=== PATIENT | male | born 1975 | race Caucasian/White ===

== ENCOUNTER 2021-12-21 11:24 | Outpatient (CLI) | payer BC, SELFPAY ==
[2021-12-21 19:34] LABS: Alanine Aminotransferase 41 U/L (6-50); Albumin Level 4.8 g/dL (3.5-5.1); Alkaline Phosphatase 51 U/L (38-126); Anion Gap 10 mmol/L (8-16); Aspartate Amino Transferase 40 U/L (17-59); Bilirubin,Total 0.5 mg/dL (0.2-1.3); Blood Urea Nitrogen 11 mg/dL (9-20); Calcium 9.5 mg/dL (8.4-10.2); Carbon Dioxide 25 mmol/L (22-30); Chloride 104 mmol/L (98-107); Estimated Glomerular Filt Rate > 60; Glucose 135 mg/dL (65-110); Potassium 4.7 mmol/L (3.4-5.0); Sodium 139 mmol/L (137-145)
[2021-12-21 20:20] LABS: Hemoglobin A1C 5.9 % (<5.7)
== END 2021-12-21 11:25 | disposition home or self-care (01) ==
LOC: ANHGOSHLAB 11:27
PROVIDERS: PCP Family Medicine; Visit Provider Family Medicine
DX: E11.9 Type 2 diabetes mellitus without complications (principal); I10 Essential (primary) hypertension
CPT/HCPCS: 36415; 80053; 83036

== ENCOUNTER 2022-12-20 10:28 | Outpatient (CLI) | payer BC, SELFPAY ==
[2022-12-20 13:33] LABS: Basophils Percent Auto 0.5 % (0.2-1.2); Eosinophils Absolute Auto 0.2 K/mm3 (0-0.3); Eosinophils Percent Auto 3.2 % (0-4.4); Hematocrit 42.2 % (42.0-52.0); Hemoglobin 14.3 g/dL (14.0-18.0); Immature Granulocyte Absolute 0.01 K/mm3 (0.00-0.031); Immature Granulocyte Percent A 0.2 % (0-0.5); Lymphocytes Absolute Auto 1.58 K/mm3 (0.9-3.2); Lymphocytes Percent Auto 28.1 % (18.3-44.2); Mean Corpuscular HGB Conc 33.9 g/dl (32-36); Mean Corpuscular Hemoglobin 30.6 pg (26-34); Mean Corpuscular Volume 90.2 fl (80-100); Monocytes Absolute Auto 0.5 K/mm3 (0.1-0.6); Monocytes Percent Auto 8.4 % (2.6-8.5); Neutrophils Absolute Auto 3.4 K/mm3 (1.3-6.7); Neutrophils Percent Auto 59.6 % (45.5-73.1); Platelet Count Result 264 k/mm3 (150-375); Red Blood Count 4.68 M/mm3 (4.6-6.20); Red Cell Distribution Width 12.4 % (11.5-14.5); White Blood Count 5.6 K/mm3 (4.5-10.0)
[2022-12-20 13:42] LABS: Alanine Aminotransferase 39 U/L (6-50); Albumin Level 4.1 g/dL (3.5-5.1); Alkaline Phosphatase 53 U/L (38-126); Anion Gap 7 mmol/L (8-16); Aspartate Amino Transferase 45 U/L (17-59); Bilirubin,Total 0.4 mg/dL (0.2-1.3); Blood Urea Nitrogen 12 mg/dL (9-20); Calcium 8.9 mg/dL (8.4-10.2); Carbon Dioxide 22 mmol/L (22-30); Chloride 109 mmol/L (98-107); Cholesterol 122 mg/dL (0-200); Estimated Glomerular Filt Rate > 60; Glucose 118 mg/dL (65-110); HDL Direct 25 mg/dL; Sodium 138 mmol/L (137-145); Triglycerides 297 mg/dL (<150)
[2022-12-20 13:52] LABS: LDL Cholesterol Direct 57 mg/dL
[2022-12-20 14:28] LABS: Potassium 4.1 mmol/L (3.4-5.0)
[2022-12-20 17:54] LABS: Hemoglobin A1C 6.3 % (<5.7)
[2022-12-22 21:06] LABS: PSA, Free 0.18 ng/mL; PSA, Total 0.8 ng/mL (<=4.0)
[2022-12-24 00:35] LABS: Vitamin D 1,25 (OH)2 Total 30 pg/mL (18-72); Vitamin D2 1,25 (OH)2 <8 pg/mL; Vitamin D3 1,25 (OH)2 30 pg/mL
== END 2022-12-20 10:29 | disposition home or self-care (01) ==
LOC: ANHGOSHLAB 10:29
PROVIDERS: PCP Family Medicine; Visit Provider Nurse Practitioner Family
DX: Z12.5 Encounter for screening for malignant neoplasm of prostate (principal); I10 Essential (primary) hypertension; E78.5 Hyperlipidemia, unspecified; E55.9 Vitamin D deficiency, unspecified; E11.9 Type 2 diabetes mellitus without complications
CPT/HCPCS: 36415; 80053; 80061; 82652; 83036; 84153; 84154; 84443; 85025

== ENCOUNTER 2024-07-18 16:17 | Outpatient (CLI) | payer BC, SELFPAY ==
--- OUTSIDE RECORDS SUMMARY | 2024-07-18 17:40 | XMS_ITS | Clinical Summary ---
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 Role Phone Unavailable Primary Care Provider Unavailabl e Social History Tobacco Use Types Packs/Day Years Used Date Smoking Tobacco: Never Assessed Sex and Gender Information Value Date Recorded Sex Assigned at Not on file Legal Sex Male 7:59 PM CDT Gender Identity Not on file Sexual Orientation Not on file Last Filed Vital Signs Vital Sign Reading Time Taken Comments Blood Pressure 140/88 04/03/2015 3:16 PM SUPERVISOR CHEMICAL Pulse - - Temperature - - Respiratory Rate - - Oxygen Saturation - - Inhaled Oxygen Concentration - - Weight 113.4 kg (250 lb) 04/03/2015 3:16 PM SUPERVISOR CHEMICAL Height 182.9 cm (6') 04/03/2015 3:16 PM SUPERVISOR CHEMICAL Body Mass Index 33.91 04/03/2015 3:16 PM SUPERVISOR CHEMICAL Plan of Treatment Health Maintenance Due Date Last Done Comments Colorectal Cancer Screening Colonoscopy (10 Years) 1975 Annual Physical 1978 Hepatitis C 1993 Hepatitis B Vaccines (1 of 3 - 19+ 3-dose series) 1994 COVID-19 Vaccine (2023-2 5 season) 2024 07/15/2020, 06/24/2020 Influenza Adult (#1) 2024 DTaP, Tdap and Td Vaccines ( 3 - Td or Tdap) 12/16/2026 12/16/2016, 04/03/2015, 05/16/2002 Meningococcal B Vaccine Aged Out No l onger eligible based on patient's age to complete this topic Meningococcal Vaccine Aged Out No myriam dinah eligible based on patient's age to complete this topic Pneumococcal Vaccine: Pediatrics (0 to 5 Years) and At-Risk Patients (6 to 64 Years) Aged Out No longer eligible b ased on patient's age to complete this topic RSV Immunizations Under 20 Months Aged Out No longer eligible b ased on patient's age to complete this topic
[2024-07-18 18:39] LABS: Alanine Aminotransferase 31 U/L (6-50); Albumin Level 4.6 g/dL (3.5-5.1); Alkaline Phosphatase 55 U/L (38-126); Anion Gap 8 mmol/L (4-12); Aspartate Amino Transferase 37 U/L (17-59); Bilirubin,Total 0.6 mg/dL (0.2-1.3); Blood Urea Nitrogen 18 mg/dL (9-20); Carbon Dioxide 30 mmol/L (22-30); Chloride 102 mmol/L (98-107); Estimated Glomerular Filt Rate > 60; Glucose 87 mg/dL (65-110); Potassium 4.1 mmol/L (3.4-5.0); Sodium 140 mmol/L (137-145)
[2024-07-18 18:54] LABS: Hemoglobin A1C 6.2 % (<5.7)
== END 2024-07-18 16:18 | disposition home or self-care (01) ==
LOC: ANHGOSHLAB 16:19
PROVIDERS: PCP Family Medicine; Visit Provider Family Medicine
DX: E78.5 Hyperlipidemia, unspecified (principal); E11.9 Type 2 diabetes mellitus without complications
CPT/HCPCS: 36415; 80053; 83036

== ENCOUNTER 2024-08-03 15:37 | Outpatient (CLI) | payer BC, SELFPAY ==
--- NOTE | ~2024-08-03 | US_ITS ---
EXAM: Focused ultrasound examination of the soft tissues of the left buttock HISTORY: R22.42 - Localized swelling, mass and lump, left lower limb TECHNIQUE: Sonographic evaluation of the soft tissues of the left buttock were performed assessing gr ayscale appearance and color Doppler flow. COMPARISON: None. FINDINGS: Within the area of palpable concern is an avascular, isoechoic focus with indistinct margin s measuring 17 x 8 x 16 mm. No posterior acoustic shadowing present. Sonographic evaluation of the remainder of the soft tissues of the left buttock demonstrate benign fi brofatty and fibromuscular elements without a cystic or solid lesion of concern. IMPRESSION: Findings within the area of palpable concern which may represent an atypical lipoma. Contrast-enhanced MRI is suggested for further evaluation. Reviewed, dictated and finalized at location A. IMPRESSION: Findings within the area of palpable concern which may represent an atypical li reta. Contrast-enhanced MRI is suggested for further evaluation.
== END 2024-08-03 15:38 | disposition home or self-care (01) ==
PROVIDERS: PCP Family Medicine; Visit Provider Family Medicine
DX: R22.42 Localized swelling, mass and lump, left lower limb (principal)
CPT/HCPCS: 76705

== ENCOUNTER 2024-08-28 08:39 | Outpatient (CLI) | payer BC, SELFPAY ==
--- NOTE | 2024-09-18 14:48 | WPDHOMESLEEP ---
Sleep Study - Home Unattended Date of Study: 08/28/24 Ordering Provider: Alec Wick MD Interpreting Provider: Lina Graham, DO Home Sleep Study Type: Watch PAT Height: 1.88 m Weight: 99.79 kg Body Mass Index: 28.2 Neck Circumference (inches): 17.25 [place]: 5 Reason for Sleep Study Snoring, witnessed apneas Sleep History The patient is a 49-year-old male that had a sleep study ordered by his primary care physician for evaluation of sleep apnea. The patient rarely awakens from sleep short of breath. He rarely awakens at night with heartburn, belching or cough. He constantly snores and is frequently loud enough that others complain. He denies having trouble sleeping when he has a cold. He occasionally wakes up gasping for air throughout the night. He occasionally has breathing problems at night observed by himself or others. He rarely sweats excessively at night. He rarely has heart palpitations or irregular heartbeats during the night. Rarely falls asleep during the day but never while driving. He denies sleep paralysis and cataplexy. He denies having trouble at school or work due to sleepiness. He rarely experiences vivid dreamlike scenes upon awakening or falling asleep. He denies feeling afraid of going to sleep. He rarely has nightmares. He rarely remembers his dreams. He rarely has thoughts racing through his mind. He denies feeling sad or depressed. He occasionally has anxiety. He occasionally has muscular tension. He occasionally notices parts of his body jerk. He rarely kicks during the night. He rarely has crawling and aching feelings in his legs and rarely has leg pain during the night. He occasionally grinds his teeth during sleep but never awakens with morning jaw pain. He is rarely bothered by pain during the day and rarely awakened by pain during the night. He occasionally wakes up feeling stiff in the morning. He rarely wakes up with sore or achy muscles. He rarely wakes up with pain in the neck, spine and other joints. He goes to bed at 10:30 p.m. on weekdays and at midnight the weekends. It can take him up to half an hour to fall asleep. He wakes up 3 times throughout the night to eat and is able to fall back asleep within 10 minutes. He wakes up at 5:30 a.m. on weekdays and at 9:30 a.m. on the weekends. He typically gets 6 hours of sleep per night. He will stay in bed for 10 minutes after waking up in the morning. He currently lives with his girlfriend and 2 children. He denies consuming any caffeinated beverages within 2 hours of bedtime. He will engage in physical exercise before bedtime. He denies reading before falling asleep. He will watch television before falling asleep. He denies taking naps in afternoon the evening. He consumes 4-6 cups of caffeinated beverage per day. He is a former smoker. He denies alcohol use. He will use an unspecified recreational drugs. [facility] Past Medical History Medical History Vitamin D deficiency Type 2 diabetes mellitus without complication, without long-term current use of insulin Environmental allergies Dyslipidemia Surgical History Surgical History History of vasectomy (~04/2022) Bent teeth extracted 1994 Family History Family History Other Diabetes mellitus Hypertension Social History Social History Social History: Caffeine-daily Smoking status: Former smoker (< 10 pack years) Tobacco type: cigarettes Second hand tobacco smoke exposure: Yes Smoking end date: 05/16/17 Alcohol intake: current Alcohol use details: consumes a couple drinks a month, rarely Substance use: current Substance use type: marijuana Do You Feel Safe in your Home?: Yes Lack of Transportation: No Lack of Food: Never True Current Housing: I Have Housing Concerned About Future Housing: No Difficulty Paying Gas/Electric Bills: No Difficulty Paying for Meds: No Currently Unemployed: No Education: Master's Degree or Higher Difficulty w/ Childcare or Family Care: No Occupation/Education: occupation 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 Medications Home Medications ?Medication ?Instructions ?Recorded ?Confirmed ?Type aspirin 81 mg tablet,delayed 81 mg PO DAILY 05/23/19 07/18/24 History release (Aspir-) cetirizine 10 mg tablet (Zyrtec) 10 mg PO DAILY 05/23/19 07/18/24 History multivitamin 1 tablet PO DAILY 05/23/19 07/18/24 History niacin 500 mg tablet 500 mg PO QID 05/23/19 07/18/24 History blood-glucose meter (Contour Meter) #1 ea 05/25/19 07/18/24 Rx lancing device (lancing device #100 ea 05/25/19 07/18/24 Rx with lancets) cholecalciferol (vitamin D3) 50 50 mcg PO DAILY 12/21/21 07/18/24 History mcg (2,000 unit) tablet blood sugar diagnostic (Contour See Rx Instructions .Route 06/17/23 07/18/24 Rx Next Test Strips) .COMPLEX #100 strips sitagliptin phos 50 mg-metformin 2 tablet PO DAILY #180 tabs 01/02/24 07/18/24 Rx ER 1,000 mg tablet,extend rel 24h mp (Janumet XR) dapagliflozin propanediol 10 mg 10 mg PO DAILY #90 tabs 02/16/24 07/18/24 Rx tablet (Farxiga) glipizide 10 mg tablet, extended 10 mg PO BID #180 tabs 02/16/24 07/18/24 Rx release 24 hr fenofibrate nanocrystallized 145 145 mg PO DAILY #90 tabs 05/18/24 07/18/24 Rx mg tablet tadalafil 10 mg tablet (Cialis) 10 mg PO DAILY PRN sexual activity 07/18/24 07/18/24 Rx #30 tabs simvastatin 10 mg tablet See Rx Instructions .Route 08/29/24 Rx .COMPLEX #90 tabs Sleep Procedure The sleep study was completed using [employer]ifts[employer] a technically adequate device with seven channels: peripheral arterial tone, actigraphy, body position, snore, respiratory movement, pulse oximetry, sleep staging, and heart rate. Prior to using the device, the patient received verbal and written instructions for its application and was provided with the help desk phone number for additional telephonic instruction with 24-hour availability of qualified personnel to answer questions. The study was scored using AASM and CMS guidelines. Sleep Architecture The total recording time is 6 hrs, 43 min. The total sleep time is 4 hrs, 57 min. Sleep latency is 17 minutes. REM latency is 107 minutes. The patient had 18 episodes of waking. Sleep architecture shows 21.2% deep sleep, 63.0% light sleep, and (as % Total Sleep Time) showed NREM (Light 63.0%; Deep 21.2%), and a 15.8% stage REM. The patient spent 4.2% of total sleep time in the supine position. Sleep efficiency was 73.70. Respiratory Analysis The overall AHI (pAHI 4%:) is 3.8. The overall AHI (pAHI 3%:) is 6.1. The central AHI is 0.6. The AHI was 6.5 in NREM and 3.8 in REM sleep. The AHI was 83.0 in Supine and 2.6 in Non-supine sleep. Percent of Micah Mccain respirations is 0.0. Oximetry Data The oxygen desaturation index (ORLY 4%:) is 4.2. The mean saturation is 95%, and the lowest saturation is 82%. Time spent with saturation < 88% is 2.5 minutes. Snoring Profile Snoring average intensity is 40 dB. The patient snored above 45 decibels for 8.4 minutes, 2.8% of sleep time. Cardiac Profile The average pulse rate is 78 beats per minutes. The lowest pulse rate is 63 bpm. The highest pulse rate reported is 99 bpm. Atrial fibrillation was not detected. Premature beats occur <0.1 per minute. Assessment and Plan Assessment and Plan (1) EMILIANO (obstructive sleep apnea): Code(s): G47.33 - Obstructive sleep apnea (adult) (pediatric) Status: Acute Assessment and Plan: Per AASM guidelines, the patient had an overall AHI of 6.1 with desaturation down to 82% which is consistent with mild sleep apnea. If the patient's insurance recognizes AASM guidelines, I recommend that he be treated due his co-morbidity of diabetes. I recommend that the patient be prescribed AutoPAP 5-15 cm H2O, CPAP mask/filters/tubing and heated humidity. If the patient's insurance only recognizes CMS guidelines, he would not qualify for treatment based on the results of this study and I would recommend having the patient do a split study. This should be used with all episodes of sleep.? Compliance should be reviewed within 31-90 days of starting therapy for usage greater than 4 hours per night greater than 70% of the nights. The patient should be asked about symptoms such as?excessive daytime sleepiness, quality of sleep, decreased nocturia, increased?mental functioning such as memory, mood, and concentration. Data The data obtained during this sleep study is adequate for interpretation. Certification This sleep study has been reviewed by a board certified sleep medicine physician.
[2024-09-18 14:50] VITALS: BMI 28.2
== END 2024-08-29 14:39 | disposition home or self-care (01) ==
LOC: ANHCSM 08:40
PROVIDERS: PCP Family Medicine; Visit Provider Family Medicine
DX: G47.33 Obstructive sleep apnea (adult) (pediatric) (principal); G47.10 Hypersomnia, unspecified; R29.818 Other symptoms and signs involving the nervous system
CPT/HCPCS: 95800

== ENCOUNTER 2025-05-15 11:12 | Emergency (ER) | payer BC, SELFPAY ==
--- NOTE | 2025-05-15 11:15 | ED.URI ---
HPI - URI/Sore Throat General Chief Complaint: Upper Respiratory Infection Stated Complaint: Sore Throat Time Seen by Provider: 05/15/25 11:12 Source: patient Mode of arrival: ambulatory Limitations: no limitations History of Present Illness HPI Narrative: patient is a 49-year-old male who presents with sore throat and cough that started yesterday. Denies any congestion, fever, chills, nausea, vomiting, diarrhea. Has taken cough drops but no other treatment. Related Data Home Medications ?Medication ?Instructions ?Recorded ?Confirmed ?Last Taken ?Type aspirin 81 mg tablet,delayed 81 mg PO DAILY 05/23/19 01/30/25 Unknown History release (Aspir-) cetirizine 10 mg tablet (Zyrtec) 10 mg PO DAILY 05/23/19 01/30/25 Unknown History multivitamin 1 tablet PO DAILY 05/23/19 01/30/25 Unknown History niacin 500 mg tablet 500 mg PO QID 05/23/19 01/30/25 Unknown History cholecalciferol (vitamin D3) 50 50 mcg PO DAILY 12/21/21 01/30/25 Unknown History mcg (2,000 unit) tablet simvastatin 10 mg tablet 10 mg PO QHS 01/30/25 01/30/25 Unknown History Allergies Allergy/AdvReac Type Severity Reaction Status Date / Time rosuvastatin AdvReac Unknown Other Verified 05/15/25 11:20 Review of Systems Review of Systems: All systems reviewed & are unremarkable except as noted in HPI and below Constitutional: Constitutional: Denies chills, Denies fatigue, Denies fever(s), Denies headache(s), Denies malaise and Denies weakness Eyes: Eyes: Denies blurry vision, Denies itchy eyes and Denies loss of vision ENT: Denies otalgia, Denies headache(s), Reports nasal congestion, Denies sinus pain and Denies sore throat Cardiovascular: Cardiovascular: Denies chest pain, Denies irregular heart rhythm and Denies dyspnea Respiratory: Respiratory: Reports cough and Denies dyspnea Gastrointestinal: Gastrointestinal: Denies abdominal pain, Denies diarrhea, Denies nausea and Denies vomiting Musculoskeletal: Musculoskeletal: Denies back pain, Denies myalgias and Denies arthralgias Integumentary/Breasts: Skin/Breast: Denies pruritus and Denies rash Neurologic: Denies headache(s), Denies loss of vision and Denies weakness Psychiatric: Psychiatric: Reports no additional psychiatric complaints Endocrine: Endocrine: Denies fatigue Allergic/Immunologic: Allergic/Immunologic: Denies itchy eyes PMFSH Past Medical History Medical History EMILIANO (obstructive sleep apnea) Vitamin D deficiency Type 2 diabetes mellitus without complication, without long-term current use of insulin Environmental allergies Dyslipidemia Surgical History Surgical History History of vasectomy (~04/2022) [place] teeth extracted 1993 Family History Family History Other Diabetes mellitus Hypertension Social History Social History Social History: Caffeine-daily Smoking status: Former smoker (< 10 pack years) Tobacco type: cigarettes Second hand tobacco smoke exposure: Yes Smoking end date: 05/16/17 Alcohol intake: current Alcohol use details: consumes a couple drinks a month, rarely Substance use: current Substance use type: marijuana Lack of Transportation: No Lack of Food: Never True Current Housing: I Have Housing Concerned About Future Housing: No Difficulty Paying Gas/Electric Bills: No Difficulty Paying for Meds: No Currently Unemployed: No Education: Master's Degree or Higher Difficulty w/ Childcare or Family Care: No Occupation/Education: occupation 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 There is no relevant family history pertinent to the presenting complaint. Exam Const: General: cooperative, healthy appearing, comfortable, no acute distress and well nourished Nutritional Appearance: well nourished Orientation/consciousness: patient oriented x3 Limitations: no limitations HENMT: Head: normal to inspection, normocephalic and atraumatic Ears: hearing grossly normal bilaterally, external ears normal, TM's normal bilaterally, EAC's normal and no periauricular adenopathy Face/Nose/Sinus: Normal external nose present, Abnormal mucous membranes and turbinates present erythematous bilateral and diffuse, normal facial exam, sinuses nontender and face symmetric Face and sinus: normal facial exam, sinuses nontender and face symmetric Mouth: Yes Normal oral and palatal mucosa present, Yes lip normal, Yes tongue normal, Yes Normal salivary glands and ducts present, Yes oropharynx normal and Yes moist mucous membranes Teeth and gingiva: dentition normal Throat: posterior oropharynx normal, tonsils normal and uvula midline Eyes: General: appearance normal, both eyes and all related structures Alignment and Position: alignment normal and position normal Periorbital: periorbital findings normal Eyelids: eyelids normal Pupils: Equal, round and reactive pupils present Neck: Neck: normal visual inspection, full ROM, no lymphadenopathy and supple Chest: Chest palpation & inspection: normal inspection of the chest and normal palpation of entire chest wall Resp: Effort & Inspection: normal respiratory effort and able to speak in complete sentences Auscultation: clear to auscultation bilaterally, no crackles, no rales, no rhonchi and no wheezes Cardio: Rate: regular rate Rhythm: regular rhythm Heart sounds: S1 normal heart sound present and S2 normal heart sound present GI: Inspection: normal to inspection Skin: General skin exam: normal color and no rashes or lesions noted Neuro: General: patient oriented x3 and moves all extremities Cranial nerves: Yes Equal, round and reactive pupils present Speech: normal speech Gait exam (Neuro): Normal gait present Extrem: General: normal to inspection, full ROM and no edema Psych: Appearance: grossly normal and well kempt Mental Status: mental status grossly normal Speech and movement: Normal speech and movement present Affect: normal affect Attitude: cooperative Thought process: Normal thought process present Course Course Emergency Course: Patient is aware of diagnosis, understands and agrees to treatment plan. Anticipatory guidance given. Patient agrees to follow-up as directed and is aware of reasons to seek care at the emergency department. Portions of this record may have been created with voice recognition software Level of Care: Express Care Visit Vital Signs Vital signs: Vital Signs Temperature 36.4 C 05/15/25 11:21 Pulse Rate 87 05/15/25 11:21 Respiratory Rate 16 05/15/25 11:21 Blood Pressure 134/92 H 05/15/25 11:21 Pulse Oximetry 98 05/15/25 11:21 Oxygen Delivery Room Air 05/15/25 11:21 Temperature 36.4 C 05/15/25 11:21 Pulse Rate 87 05/15/25 11:21 Respiratory Rate 16 05/15/25 11:21 Blood Pressure 134/92 H 05/15/25 11:21 Pulse Oximetry 98 05/15/25 11:21 Oxygen Delivery Room Air 05/15/25 11:21 [facility] Narrative Medical decision making narrative: Rapid strep was negative. A throat culture is pending. Symptoms likely viral in etiology.Offer COVID flu testing. Patient declined. Patient states he a COVID 3 weeks ago. Pt well hydrated appearing, in no respiratory distress, hemodynamically stable. Recommend supportive care. The patient is stable at time of discharge the clinical impression was discussed and the patient was given the opportunity to ask questions, which were addressed as completely as possible given the information available at present. Anticipatory guidance and return to care precautions were discussed and the importance of primary care follow-up was stressed and encouraged. The patient voiced understanding of the plan, indications to return, and the need for follow-up. Exam findings show no acute concerns or changes Patient is appropriate for outpatient treatment and follow-up. Differential Diagnosis Differential Diagnosis: Differential diagnosis considered: [place] virus, strep pharyngitis, allergic rhinitis, upper respiratory tract infection, sinusitis, rhinosinusitis, nasopharyngitis. viral pharyngitis, otitis media, otitis externa, otitis effusion, foreign body, cerumen impaction, viral syndrome, and influenza. Medical Records I have reviewed the following patient records and this information was taken into consideration when formulating the assessment and plan.: previous clinic visits Lab Data [facility] Lab Attestation statement: I personally reviewed the patient's lab results. Labs: Lab Results 05/15/25 Range/Units 11:51 POC Grp A Strep Screen Negative (Negative) Discharge Plan Discharge Clinical Impression: Upper respiratory infection Qualifiers: URI type: acute nasopharyngitis (common cold) Qualified Code(s): J00 - Acute nasopharyngitis [common cold] Patient Disposition: Home Condition: Stable Instructions: Upper Respiratory Infection (ED) Additional Instructions: Your rapid strep swab was negative today at [facility]. A throat culture will be sent to the laboratory for further testing. If the test is positive, you will receive a phone call within 48 hours and an appropriate antibiotic will be initiated at that time. Your symptoms are likely due to a viral illness, which is not treated with antibiotics. Viral symptoms can be present for up to a few weeks. -For pain/fever, you may take: Tylenol 650-1000mg by mouth every 4-6 hours. Do not exceed 4000mg in 24 hours. Advil (Ibuprofen) 600 mg by mouth every 6 hours. Do not exceed 2400mg in 24 hours. 8 AM: Tylenol 11 AM: Ibuprofen 2 PM: Tylenol 5 PM: Ibuprofen 8 PM: Tylenol 11 PM: Ibuprofen 2 AM: Tylenol 5 AM: Ibuprofen -Antihistamine medication such as Benadryl/Zyrtec at night and Claritin/Penny during the day can help improve symptoms. -Use Flonase twice a day for 5 days then daily to help reduce the inflammation and dry up your sinuses. -You can also use Sudafed behind the pharmacy counter(12 or 24 hour). Be sure to drink plenty of water with these medications at least 8 ounces with every dose and it is important to drink 8 to 10 glasses of water per day. Water is a natural decongestant -Eat and drink things that are easy to swallow, like tea or soup, or popsicles. -Oral rinses such as: Salt water gargles and/or may use topical anesthetic (eg. Chloraseptic spray) or lozenges to relieve dryness or throat pain). -Frequent hand washing or hand grout machine tender is one of the best ways to prevent spread of infection. -Using a vaporizer or humidifier at night will also help thin secretions and help with coughing up phlegm. Call your Primary Care Doctor and make a follow-up appointment in 3 days. If your cough worsens, you develop a fever greater than 103, you develop shaking chills, a fast heartbeat, trouble breathing and/or feel you are are breathing much faster than usual, call your Primary Care Doctor or go to the ER. Patient Language: Moroccan Prescriptions: New benzonatate 100 mg capsule 100 mg PO BID PRN (Reason: cough) Qty: 14 0RF fluticasone propionate [Flonase Allergy Relief] 50 mcg/actuation spray,suspension 1 spray intranasal DAILY Qty: 16 0RF Rx Instructions: administer into each nostril No Action cholecalciferol (vitamin D3) 50 mcg (2,000 unit) tablet 50 mcg PO DAILY niacin 500 mg tablet 500 mg PO QID aspirin [Aspir-81] 81 mg tablet,delayed release (DR/EC) 81 mg PO DAILY cetirizine [Zyrtec] 10 mg tablet 10 mg PO DAILY multivitamin Tablet 1 tablet PO DAILY Contour Next Test Strips Strip See Rx Instructions .ROUTE .COMPLEX Qty: 100 3RF Dose Instruction: TEST EVERY MORNING AND NEEDED -- MAXIMUM OF 3 TIMES DAILY Rx Instructions: TEST EVERY MORNING AND NEEDED -- MAXIMUM OF 3 TIMES DAILY tadalafil [Cialis] 10 mg tablet 10 mg PO DAILY PRN (Reason: sexual activity) Qty: 30 0RF Rx Instructions: administer approximately 30min before sexual activity; do not use more than 1 dose per 24hrs simvastatin 10 mg tablet 10 mg PO QHS (DME) blood-glucose meter [Contour Meter] [facility] See Rx Instructions .ROUTE .MEDSUPPLY Qty: 1 0RF Rx Instructions: As directed [place] [place] lancing device [lancing device with lancets] [facility] See Rx Instructions .ROUTE .MEDSUPPLY Qty: 100 3RF Rx Instructions: to test blood sugar QAM and PRN max TID (DME) auto Pap See Rx Instructions .Route .MEDSUPPLY Qty: 1 0RF Rx Instructions: auto PAP and supplies AutoPAP 5-15 cm H2O Janumet XR 50-1,000 mg tablet, ER multiphase 24 hr 2 tablet PO DAILY Qty: 180 1RF Farxiga 10 mg tablet 10 mg PO DAILY Qty: 90 1RF glipizide 10 mg tablet extended release 24hr 10 mg PO BID Qty: 180 1RF fenofibrate nanocrystallized 145 mg tablet 145 mg PO DAILY Qty: 90 1RF ondansetron 4 mg tablet,disintegrating 4 mg PO Q8H PRN (Reason: nausea and vomiting) Qty: 30 0RF Follow-up/Referrals: Valorie Wick MD [Primary Care Provider, Family Practice] - 3 Days Time of Disposition: 11:42
[2025-05-15 11:21] VITALS: BP 134/92; PULSE 87; RESP 16; TEMP 36.4; O2SAT 98
--- OUTSIDE RECORDS SUMMARY | 2025-05-15 11:33 | XMS_ITS | Clinical Summary ---
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 Pulse - - Temperature - - Respiratory Rate - - Oxygen Saturation - - Inhaled Oxygen Concentration - - Weight 113.4 kg (250 lb) 04/03/2015 3:16 PM RETAIL MANAGEMENT KEYHOLDER Height 182.9 cm (6') 04/03/2015 3:16 PM RETAIL MANAGEMENT KEYHOLDER Body Mass Index 33.91 04/03/2015 3:16 PM RETAIL MANAGEMENT KEYHOLDER Plan of Treatment Health Maintenance Due Date Last Done Comments Colorectal Cancer Screening Colonoscopy (10 Years) 1975 Annual Physical 1978 Hepatitis C 1993 Hepatitis B Vaccines (1 of 3 - 19+ 3-dose series) 1994 COVID-19 Vaccine ( - 2024-2 6 season) 2025 07/15/2020, 06/24/2020 Influenza Adult (#1) 2025 DTaP, Tdap and Td Vaccines ( 3 - Td or Tdap) 12/16/2026 12/16/2016, 04/03/2015, 05/16/2002 Hepatitis A Vaccines Aged Out No long er eligible based on patient's age to complete this topic Meningococcal B Vaccine Aged Out No l onger eligible based on patient's age to complete this topic Meningococcal Vaccine Aged Out No myriam dinah eligible based on patient's age to complete this topic Pneumococcal Vaccine: Pediatrics (0 to 5 Years) and At-Risk Patients (6 to 49 Years) Aged Out No longer eligible b ased on patient's age to complete this topic RSV Immunizations Under 20 Months Aged Out No longer eligible b ased on patient's age to complete this topic
[2025-05-15 11:53] LABS: EDSTREPNEGPOS1 Negative (Negative)
== END 2025-05-15 11:46 | disposition home or self-care (01) ==
PROVIDERS: Emergency Provider Nurse Practitioner Family; PCP Family Medicine
DX: J06.9 Acute upper respiratory infection, unspecified (principal); J00 Acute nasopharyngitis [common cold]; G47.33 Obstructive sleep apnea (adult) (pediatric); E55.9 Vitamin D deficiency, unspecified; E11.9 Type 2 diabetes mellitus without complications; E78.5 Hyperlipidemia, unspecified; Z87.891 Personal history of nicotine dependence
CPT/HCPCS: 87081; 87880; 99213; G0463